=== PATIENT | male | born 1955 | race Caucasian/White ===

== ENCOUNTER 2016-08-18 10:00 | Outpatient (CLI) | payer OTHER | END 2016-08-18 23:00 | LOC: LAB SRH 10:00 | DX: D84.9 Immunodeficiency, unspecified (principal); R80.9 Proteinuria, unspecified; N05.9 Unspecified nephritic syndrome with unspecified morphologic changes; N25.81 Secondary hyperparathyroidism of renal origin | CPT/HCPCS: 90074; 90100; 90185; 91162; 91163; 91171; 92331 ==